=== PATIENT | female | born 1950 | race African-American/Black ===

== ENCOUNTER → 2019-02-21 | Outpatient (CLI) | payer OTHER ==
[2015-05-23 12:00] VITALS: BP 147/66
[~2019-02-21] MED LIST: AMLO10TA4 PO; ANAS1TAB PO; CHLO25TA10 PO; CLON0.1T PO; GLIM2TAB2 PO; IRBE300T3 PO; METF10007 PO
--- NOTE | 2019-02-21 17:11 | KCIC ---
FOOT LEFT 3V 02/21/2019 12:00 AM INDICATION: Left lateral foot pain at the base of the fifth metatarsal. COMPARISON: None available. TECHNIQUE: 3 views of the left foot are provided. FINDINGS: There is no acute fracture or dislocation. Bone mineralization is within normal limits. Joint spaces are maintained. Regional soft tissues are within normal limits. There is no soft tissue gas or osseous erosion. Posterior and plantar calcaneal enthesophytes are present. Vascular calcifications are noted. Marginal osteophytosis is identified at the head of the fifth metatarsal. IMPRESSION: No acute fracture or dislocation. Electronically signed by: Stephanie Cruz MD (02/21/2019 5:08 PM) [id number]
== END | disposition home or self-care (01) ==
LOC: KCIC 15:49
PROVIDERS: ATTEND Family Medicine
DX: M77.52 Other enthesopathy of left foot and ankle (principal); M25.775 Osteophyte, left foot
CPT/HCPCS: 73630